=== PATIENT | female | born 1935 | race African-American/Black ===

== ENCOUNTER 2021-03-21 15:11 | Emergency (ER) | payer OTHER ==
[~2021-03-21] VITALS: Ht 165.1 cm; Wt 50.0 kg
[2021-03-21 16:12] LABS: HEMATOCRIT. 37.9 % (36.0-48.0); HEMOGLOBIN. 13.1 g/dL (12.0-16.0); MEAN CORPUSCULAR HEMOGLOBIN 32.1 pg (28.0-32.0); MEAN CORPUSCULAR VOLUME 92.6 fL (81.0-99.0); MEAN PLATELET VOLUME 7.7 fl (7.4-10.4); PLATELET 185 x1000/uL (130-400); RED BLOOD CELL COUNT 4.09 mill/uL (4.2-5.4); RED CELL DISTRIBUTION WIDTH 13.9 % (11.6-14.6)
[2021-03-21 16:15] LABS: CHLORIDE 104 mEq/L (98-107)
[2021-03-21] MEDS ORDERED: ENOXAPARIN 60MG/0.6ML SYR SUBCUT ONE (17:00)
[2021-03-21] MEDS ORDERED: ASPIRIN 325MG EC TABLET PO ONE (17:00)
[2021-03-21 17:13] LABS: PLATELET ESTIMATE NORMAL
[2021-03-21 17:26] LABS: INR 1.1; PROTHROMBIN TIME 11.9 sec (9.6-11.0)
[2021-03-21 21:50] VITALS: BP 130/73
== END 2021-03-21 22:05 | disposition short-term general hospital (02) ==
LOC: ER 15:11
DX: I63.9 Cerebral infarction, unspecified (principal); E11.9 Type 2 diabetes mellitus without complications; Z86.73 Personal history of transient ischemic attack (TIA), and cerebral infarction without residual deficits
CPT/HCPCS: 36415; 70450; 71045; 80053; 84484; 85025; 85610; 93005; 96372; 99291; J1650; 99285

== ENCOUNTER 2021-04-10 07:01 | Emergency (ER) | payer OTHER ==
[~2021-04-10] VITALS: Ht 152.4 cm; Wt 54.2 kg
[2021-04-10 08:05] LABS: HEMATOCRIT. 37.9 % (36.0-48.0); HEMOGLOBIN. 13.2 g/dL (12.0-16.0); MEAN CORPUSCULAR HEMOGLOBIN 31.6 pg (28.0-32.0); MEAN PLATELET VOLUME 7.7 fl (7.4-10.4); PLATELET 215 x1000/uL (130-400); RED BLOOD CELL COUNT 4.17 mill/uL (4.2-5.4); RED CELL DISTRIBUTION WIDTH 14.6 % (11.6-14.6)
[2021-04-10 08:13] LABS: CHLORIDE 104 mEq/L (98-107)
[2021-04-10 08:14] LABS: INR 1.1; PROTHROMBIN TIME 11.3 sec (9.6-11.0)
[2021-04-10 08:35] LABS: CLARITY URINE CLEAR (CLEAR); COLOR URINE YELLOW (YELLOW); KETONES URINE NEGATIVE (NEGATIVE); LEUKOCYTE ESTERASE URINE NEGATIVE (NEGATIVE); NITRITE URINE NEGATIVE (NEGATIVE); OCCULT BLOOD URINE 2+ (NEGATIVE); PROTEIN URINE NEGATIVE (NEGATIVE); SPECIFIC GRAVITY URINE 1.012 (1.005-1.030)
[2021-04-10] MEDS ORDERED: ASPIRIN 325MG EC TABLET PO NR (08:48)
[2021-04-10] MEDS ORDERED: FUROSEMIDE 20MG/2ML VIAL IVP NR (08:49)
[2021-04-10 09:50] LABS: PLATELET ESTIMATE NORMAL
[2021-04-10 12:27] VITALS: BP 138/80
== END 2021-04-10 12:10 | disposition short-term general hospital (02) ==
LOC: ER 07:01 → CANBEDREQ 12:00 → ER 12:10
DX: I21.4 Non-ST elevation (NSTEMI) myocardial infarction (principal); I11.0 Hypertensive heart disease with heart failure; I50.9 Heart failure, unspecified; G93.41 Metabolic encephalopathy; E11.9 Type 2 diabetes mellitus without complications; R53.1 Weakness; I69.351 Hemiplegia and hemiparesis following cerebral infarction affecting right dominant side; Z93.1 Gastrostomy status
CPT/HCPCS: 36415; 70450; 71045; 80053; 81003; 82962; 83605; 83880; 84145; 84484; 85025; 85610; 87040; 87086; 93005; 96374; 99285; J1940